=== PATIENT | female | born 1980 | race Caucasian/White ===

== ENCOUNTER → 2016-11-20 | Outpatient (REF) | payer OTHER | LOC: M LAB REF 14:24 | PROVIDERS: ATTEND Physician Assistant Medical | DX: J10.1 Influenza due to other identified influenza virus with other respiratory manifestations (principal) ==

== ENCOUNTER → 2016-12-21 | Outpatient (CLI) | payer OTHER ==
--- NOTE | 2016-12-21 16:30 | REP ---
MAXILLOFACIAL CT WITHOUT CONTRAST: HISTORY: Facial pain. COMPARISON: 09/03/2014 Bilateral Manuela cells are present. The sinuses are clear. The osteomeatal units are patent. The middle and inferior nasal turbinates are partially paradoxical. There is minimal deviation of the nasal septum to the left. The cribriform plate, medial pearl of the orbits and optic canals are intact. The carotid canals form a segment of the posterolateral pearl of the sphenoid sinus. The left sphenoid sinus septum inserts into the left internal carotid canal wall. IMPRESSION: There is no acute or chronic sinusitis. Signed by Lawson Saavedra MD 12/21/2016 04:33 P
== END ==
LOC: M RAD 15:28
PROVIDERS: ATTEND Specialist
DX: G50.1 Atypical facial pain (principal); S02.92XS Unspecified fracture of facial bones, sequela

== ENCOUNTER → 2017-04-14 | Outpatient (CLI) | payer OTHER ==
--- NOTE | 2017-04-14 14:00 | REP ---
BILATERAL DIAGNOSTIC MAMMOGRAM WITH BILATERAL BREAST ULTRASOUND: Family history of breast cancer in maternal cousin. Bilateral mammogram performed in the MLO and CC projections with bilateral spot compression views. Reportedly there is a palpable abnormality in the lower outer left breast and that area is marked on the skin with a triangular marker. There are no comparison studies. There is moderate fibroglandular tissue bilaterally. There is a suggestion of an ill-defined nodular opacity in the upper outer quadrant of the right breast. Margins are not well visualized due to the moderately dense breast parenchyma. It is vaguely visualized on the right CC spot compression view. No nodule is seen in the left breast, particularly at the site of the reported palpable abnormality. No clustered microcalcifications are seen bilaterally. Real-time sonographic evaluation of the right breast is performed laterally. There is an oval hypoechoic nodule, which appears to demonstrate some internal blood flow with Doppler color evaluation. This measures 1.3 x 0.9 x 1.0 cm. Biopsy is recommended. At the site of the reported palpable abnormality at 4 -o'clock position in the left breast, there is a hypoechoic nodule 7 x 3 x 5 mm. This also appears to demonstrate some internal blood flow with Doppler color evaluation. Ultrasound-guided biopsy is recommended. IMPRESSION: ACR 4 suspicious. Hypoechoic nodule seen best by ultrasound in the region of 9 -o'clock position right breast. Recommend ultrasound guided biopsy. At the site of the reported palpable abnormality in the left breast, there is another hypoechoic nodule for which ultrasound guided biopsy is recommended. BI-RADS/ACR category 4 mammogram. Suspicious abnormality - biopsy should be considered. Usually requires biopsy. This mammogram was interpreted with the aid of an FDA-approved computer-aided detection system. The patient states she/he had a clinical breast exam in March 2017. Patient letter [id number]. Signed by Lionel Sommer MD 04/14/2017 04:57 P
== END ==
LOC: M RAD 11:03
PROVIDERS: ATTEND Advanced Practice Midwife
DX: N63 Unspecified lump in breast (principal)
CPT/HCPCS: 76642; G0204

== ENCOUNTER → 2017-05-11 | Outpatient (REF) | payer OTHER | LOC: M LAB REF 13:51 | PROVIDERS: ATTEND Advanced Practice Midwife | DX: Z12.4 Encounter for screening for malignant neoplasm of cervix (principal) ==

== ENCOUNTER → 2017-09-17 | Outpatient (REF) | payer OTHER | LOC: M LAB REF 15:54 | DX: J02.9 Acute pharyngitis, unspecified (principal) ==

== ENCOUNTER → 2017-12-31 | Outpatient (CLI) | payer OTHER ==
[2017-12-31 09:42] LABS: HEMATOCRIT 42.7 % (36.0-47.0); HEMOGLOBIN 14.7 g/dl (12.0-15.5); MEAN CORPUSCULAR HEMOGLOBIN 31.5 pg (27.0-33.0); MEAN CORPUSCULAR HGB CONC 34.4 g/dl (32.0-36.5); MEAN CORPUSCULAR VOLUME 91.6 fl (80.0-96.0); PLATELET COUNT, AUTOMATED 360 10^3/uL (150-450); RED BLOOD COUNT 4.66 10^6/uL (4.00-5.40); RED CELL DISTRIBUTION WIDTH 11.8 % (11.5-14.5); WHITE BLOOD COUNT 6.5 10^3/uL (4.0-10.0)
[2017-12-31 10:07] LABS: ALBUMIN/GLOBULIN RATIO 1.25 (1.00-1.93); ALKALINE PHOSPHATASE 59 U/L (45-117); ALT/SGPT 17 U/L (12-78); ANION GAP 5 MEQ/L (8-16); AST/SGOT 14 U/L (7-37); BILIRUBIN,TOTAL 0.3 MG/DL (0.2-1.0); BLOOD UREA NITROGEN 6 MG/DL (7-18); CARBON DIOXIDE LEVEL 27 MEQ/L (21-32); CHLORIDE LEVEL 108 MEQ/L (98-107); CREATININE FOR GFR 0.73 MG/DL (0.55-1.30); GLOMERULAR FILTRATION RATE > 60.0 (>60); GLUCOSE, FASTING 90 MG/DL (70-100); IRON (FE) 83 UG/DL (50-170); PERCENT SATURATION 28.5 % (13.2-45.0); POTASSIUM SERUM 4.5 MEQ/L (3.5-5.1); SODIUM LEVEL 140 MEQ/L (136-145); THYROID STIMULATING HORMONE < 0.005 uIU/ML (0.358-3.740); THYROXINE (T4) 16.3 UG/DL (4.5-12.0); TOTAL IRON BINDING CAPACITY 291 UG/DL (250-450); TOTAL PROTEIN 7.2 GM/DL (6.4-8.2)
[2017-12-31 10:47] LABS: ESTIMATED AVERAGE GLUCOSE 88 MG/DL (60-110); HEMOGLOBIN A1c 4.7 %
== END ==
LOC: M LAB 09:02
DX: I10 Essential (primary) hypertension (principal)
CPT/HCPCS: 83550

== ENCOUNTER → 2018-11-20 | Outpatient (CLI) | payer OTHER ==
[2018-11-20 15:48] LABS: HEMATOCRIT 42.7 % (36.0-47.0); HEMOGLOBIN 14.3 g/dl (12.0-15.5); MEAN CORPUSCULAR HEMOGLOBIN 31.7 pg (27.0-33.0); MEAN CORPUSCULAR HGB CONC 33.5 g/dl (32.0-36.5); MEAN CORPUSCULAR VOLUME 94.7 fl (80.0-96.0); PLATELET COUNT, AUTOMATED 323 10^3/uL (150-450); RED BLOOD COUNT 4.51 10^6/uL (4.00-5.40); WHITE BLOOD COUNT 9.4 10^3/uL (4.0-10.0)
[2018-11-20 16:13] LABS: HEMOGLOBIN A1c 4.8 %
[2018-11-20 16:23] LABS: ALBUMIN 4.1 GM/DL (3.2-5.2); ALT/SGPT 27 U/L (12-78); BILIRUBIN,TOTAL 0.4 MG/DL (0.2-1.0); BLOOD UREA NITROGEN 8 MG/DL (7-18); CALCIUM LEVEL 8.6 MG/DL (8.5-10.1); CARBON DIOXIDE LEVEL 27 MEQ/L (21-32); CHLORIDE LEVEL 106 MEQ/L (98-107); CHOLESTEROL LEVEL 208 MG/DL (<200); CHOLESTEROL RISK RATIO 3.014 (<5); CREATININE FOR GFR 0.73 MG/DL (0.55-1.30); GLOMERULAR FILTRATION RATE > 60.0 (>60); GLUCOSE, FASTING 76 MG/DL (70-100); HDL CHOLESTEROL 69 MG/DL (>40); LDL CHOLESTEROL 111 MG/DL (<100); NON-HDL-C 139 MG/DL; SODIUM LEVEL 141 MEQ/L (136-145); THYROXINE (T4) 12.6 UG/DL (4.5-12.0); TOTAL PROTEIN 7.2 GM/DL (6.4-8.2); TRIGLYCERIDES LEVEL 139 MG/DL (<150)
[2018-11-21 09:21] LABS: TOTAL 25(OH) VITAMIN D 23.2 NG/ML (30.0-100.0)
[2018-11-21 09:22] LABS: TOTAL T3 132.3 NG/DL (60.0-181.0)
== END ==
LOC: M LAB 15:07
PROVIDERS: ATTEND Family Medicine
DX: R53.83 Other fatigue (principal); E03.9 Hypothyroidism, unspecified

== ENCOUNTER → 2020-02-13 | Outpatient (REF) | payer OTHER ==
[2020-02-13 18:37] LABS: HEMATOCRIT 45.9 % (36.0-47.0); HEMOGLOBIN 15.4 g/dl (12.0-15.5); MEAN CORPUSCULAR HEMOGLOBIN 31.6 pg (27.0-33.0); MEAN CORPUSCULAR HGB CONC 33.6 g/dl (32.0-36.5); MEAN CORPUSCULAR VOLUME 94.3 fl (80.0-96.0); PLATELET COUNT, AUTOMATED 380 10^3/uL (150-450); RED BLOOD COUNT 4.87 10^6/uL (4.00-5.40); WHITE BLOOD COUNT 11.1 10^3/uL (4.0-10.0)
== END ==
LOC: M PLALAB 15:45
PROVIDERS: ATTEND Advanced Practice Midwife
DX: N92.4 Excessive bleeding in the premenopausal period (principal)

== ENCOUNTER → 2020-02-22 | Outpatient (CLI) | payer OTHER ==
--- NOTE | 2020-02-22 11:52 | REP ---
Clinical: Menorrhagia. Technique: Transabdominal pelvic ultrasound followed by transvaginal examination for better evaluation of the endometrium and adnexa. Findings: Bladder is normal and measures 6.7 x 6.5 x 6.2 cm. Heterogeneous retroverted uterus measures 6.9 x 3.2 x 4.3 cm. Endometrial complex measures 9.4 mm thickness. Echogenic lesion within the endometrium towards the fundus measures 7 x 8 x 5 mm and may represent hemorrhagic debris or polyp. Right ovary is normal in appearance and vascularity measuring 2.2 x 2.0 x 1.4 cm. Left ovary is normal in vascularity and measures 3.0 x 1.6 x 2.4 cm including multiple follicles and 1.5 cm dominant follicle/physiologic cyst. No pelvic fluid or adnexal mass lesion. Impression: 1. Heterogeneous retroverted uterus with possible 8 mm endometrial polyp. 2. 1.5 cm dominant follicle/physiologic cyst in the left ovary.
--- NOTE | 2020-02-22 14:18 | REP ---
DIGITAL DIAGNOSTIC BILATERAL MAMMOGRAPHY WITH CAD: 3D TOMOGRAPHY: AND FOCUSED LEFT BREAST SONOGRAPHY. HISTORY: Palpable lump left breast getting larger. Bilateral breast pain diffuse. The patient relates a history of bilateral benign breast biopsies in 2017. Comparison mammography April 14, 2017 with bilateral breast sonography at that time. MAMMOGRAPHIC FINDINGS: Breast parenchyma is heterogeneously dense in a pattern which may inhibit the sensitivity of mammography. The Volpara volumetric breast density category is: C. There has been some involutional change. Stromal pattern is otherwise unchanged on the right. No neodensity, spiculation, or architectural distortion is seen. On the left, a skin marker is affixed to the skin at the site of the palpable lump and this projects in the left lateral mid breast slightly inferior to the plane of the nipple on the true mediolateral view. Magnified focal spot compression and routine views of the left breast show no mammographic neodensity, architectural distortion, or microcalcification. SONOGRAPHIC FINDINGS: At the site of the palpable lump at 4-o'clock position 3 cm from the nipple there is a 5 x 6 x 3 mm hypoechoic area which is felt to be unchanged from the comparison sonography April 14, 2017. Also noted at 4-o'clock position, 5 cm from the nipple is a 4 mm area slightly hypoechoic. There is no evidence of acoustic shadowing. This is not felt to have suspicious features. IMPRESSION: BIRADS 2: BI-RADS/ACR category 2 mammogram. Benign Findings. BIRADS category II benign findings. Clinical followup is advised. Repeat screening mammography recommended 1 year. This mammogram was interpreted with the aid of an FDA-approved computer-aided detection system. The patient states she had a clinical breast exam in January 2020. The patient letter being requested is [id number] dense This patient's estimated Tyrer-zick lifetime risk assessment for breast cancer is 14.1 %.
== END ==
LOC: M WHC 10:39
PROVIDERS: ATTEND Advanced Practice Midwife
DX: N64.4 Mastodynia (principal); N92.4 Excessive bleeding in the premenopausal period; N83.201 Unspecified ovarian cyst, right side; N85.4 Malposition of uterus; N63.20 Unspecified lump in the left breast, unspecified quadrant
CPT/HCPCS: 76642; 76830; 76856; 77066; G0279

== ENCOUNTER → 2020-03-21 | Outpatient (CLI) | payer OTHER ==
--- NOTE | 2020-05-10 15:52 | REP ---
This report was delayed due to a malware attack at this facility. FOCUSED RIGHT BREAST ULTRASOUND HISTORY: 7 cm from the nipple at 9 o'clock in the right breast, right breast mass. Additional imaging requested. COMPARISON: Mammography 02/22/2020. SONOGRAPHIC FINDINGS: There is a hypoechoic nodule in the 9 o'clock position of the right breast approximately 7 cm from the nipple measuring 8 x 5 x 8 mm. This is nonspecific. It is not a simple cyst. There is a simple cyst nearby in the 9 o'clock of the right breast measuring 8 x 8 x 3 mm as well. IMPRESSION: Nonspecific 8 mm hypoechoic solid nodule 9 o'clock position, right breast. BI- RADS category 4, suspicious findings. Ultrasound-guided needle biopsy with marker clip placement recommended. MTDD
== END ==
LOC: M WHC 09:03
PROVIDERS: ATTEND Surgery
DX: N63.15 Unspecified lump in the right breast, overlapping quadrants (principal); N60.01 Solitary cyst of right breast

== ENCOUNTER 2020-09-27 19:28 | Inpatient (IN) | payer OTHER ==
[2020-09-27 19:58] LABS: BASO # 0.1 10^3/uL (0.0-0.2); BASO % 0.6 % (0.0-1.0); EOS % 0.1 % (0.0-3.0); HEMATOCRIT 42.6 % (36.0-47.0); HEMOGLOBIN 13.9 g/dl (12.0-15.5); LYMPH # 1.4 10^3/uL (1.5-5.0); LYMPH % 13.9 % (24.0-44.0); MEAN CORPUSCULAR HEMOGLOBIN 31.4 pg (27.0-33.0); MEAN CORPUSCULAR HGB CONC 32.6 g/dl (32.0-36.5); MEAN CORPUSCULAR VOLUME 96.2 fl (80.0-96.0); MONO # 0.4 10^3/uL (0.0-0.8); MONO % 4.2 % (0.0-5.0); NEUTROPHILS # 8.3 10^3/uL (1.5-8.5); NEUTROPHILS % 80.8 % (36.0-66.0); PLATELET COUNT, AUTOMATED 359 10^3/uL (150-450); RED BLOOD COUNT 4.43 10^6/uL (4.00-5.40); WHITE BLOOD COUNT 10.2 10^3/uL (4.0-10.0)
[2020-09-27] MEDS ORDERED: NS 1,000 ML IV ONE (20:15)
--- NOTE | 2020-09-27 20:35 | ECGEPIP ---
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
--- NOTE | 2020-09-27 20:39 | REPVR ---
PROCEDURE INFORMATION: Exam: CT Head Without Contrast Exam date and time: 09/27/2020 8:05 PM Age: 39 years old Clinical indication: Altered mental status/memory loss; Confusion or disorientation; Additional info: AMS TECHNIQUE: Imaging protocol: Computed tomography of the head without contrast. Radiation optimization: All CT scans at this facility use at least one of these dose optimization techniques: automated exposure control; mA and/or kV adjustment per patient size (includes targeted exams where dose is matched to clinical indication); or iterative reconstruction. COMPARISON: CT Head without contrast 07/05/2016 2:29 PM FINDINGS: Brain: Normal. No hemorrhage. Unremarkable white matter. No mass effect. Cerebral ventricles: No ventriculomegaly. Bones/joints: Unremarkable. No acute fracture. Paranasal sinuses: Visualized sinuses are unremarkable. No fluid levels. Mastoid air cells: Visualized mastoid air cells are well aerated. Soft tissues: Unremarkable. IMPRESSION: No acute intracranial abnormality. Electronically signed by: Uvaldo Montgomery On 09/27/2020 20:39:51 PM
[2020-09-27 20:44] LABS: ALBUMIN 3.6 GM/DL (3.2-5.2); ALT/SGPT 28 U/L (12-78); BILIRUBIN,DIRECT < 0.1 MG/DL (0.0-0.2); BILIRUBIN,TOTAL 0.2 MG/DL (0.2-1.0); BLOOD UREA NITROGEN 12 MG/DL (7-18); CALCIUM LEVEL 8.9 MG/DL (8.5-10.1); CARBON DIOXIDE LEVEL 29 MEQ/L (21-32); CHLORIDE LEVEL 103 MEQ/L (98-107); CREATININE FOR GFR 0.86 MG/DL (0.55-1.30); GLOMERULAR FILTRATION RATE > 60.0 (>60); GLUCOSE, FASTING 114 MG/DL (70-100); POTASSIUM SERUM 4.9 MEQ/L (3.5-5.1); SODIUM LEVEL 138 MEQ/L (136-145); TOTAL PROTEIN 6.5 GM/DL (6.4-8.2)
[2020-09-27 20:56] LABS: APPEARANCE, URINE CLEAR (CLEAR); BACTERIA, URINE AUTO NEGATIVE (NEGATIVE); BILIRUBIN, URINE AUTO NEGATIVE (NEGATIVE); BLOOD, URINE BLOOD NEGATIVE (NEGATIVE); COLOR, URINE YELLOW (YELLOW); GLUCOSE, URINE (UA) AUTO 1+ mg/dL (NEGATIVE); KETONE, URINE AUTO NEGATIVE (NEGATIVE); LEUKOCYTE ESTERASE, URINE AUTO NEGATIVE (NEGATIVE); MUCUS, URINE SMALL (NEGATIVE); NITRITE, URINE AUTO NEGATIVE (NEGATIVE); PROTEIN, URINE AUTO NEGATIVE (NEGATIVE); RBC, URINE AUTO 4 /HPF (0-3); SPECIFIC GRAVITY URINE AUTO 1.021 (1.002-1.035); SQUAMOUS EPITHELIAL CELL UR AU 1 /HPF (0-6); UROBILINOGEN, URINE AUTO 0.2 mg/dL (0.0-2.0); WBC, URINE AUTO 1 /HPF (0-3)
[2020-09-27 21:41] LABS: AMPHETAMINES LEVEL URINE POSITIVE (NEGATIVE); BARBITURATES URINE NEGATIVE (NEGATIVE); BENZODIAZEPINES URINE NEGATIVE (NEGATIVE); CANNABINOIDS URINE POSITIVE (NEGATIVE); COCAINE METABOLITE URINE NEGATIVE (NEGATIVE); METHADONE URINE NEGATIVE (NEGATIVE); OPIATES URINE NEGATIVE (NEGATIVE); PHENCYCLIDINE URINE NEGATIVE (NEGATIVE)
[2020-09-28 00:13] LABS: RSV AMPLIFICATION NEGATIVE (NEGATIVE)
[2020-09-28] MEDS ORDERED: ALPR1TAB3 PO (00:18)
[2020-09-28] MEDS ORDERED: med rec comment (00:23)
[2020-09-28] MEDS ORDERED: ACETAMINOPHEN TAB 650MG DOSE (2X325MG) PO PRN (02:30)
[2020-09-28] MEDS ORDERED: FOLIC ACID 1 MG in NS 50 ML IV SCH ×2 (02:30→12:00)
--- NOTE | 2020-09-28 02:46 | REPVR ---
PROCEDURE INFORMATION: Exam: XR Chest, 1 View Exam date and time: 09/28/2020 2:36 AM Age: 39 years old Clinical indication: Other: AMS TECHNIQUE: Imaging protocol: XR of the chest Views: 1 view. COMPARISON: CR Chest, 2 view PA, Lat 07/15/2016 4:10 PM FINDINGS: Lungs: No consolidation. Pleural spaces: No definite pneumothorax. Heart/Mediastinum: Unremarkable. No cardiomegaly. Bones/joints: Unremarkable. Other findings: Apices are partially obscured by chin position. IMPRESSION: No definite acute abnormality. Electronically signed by: Uvaldo Montgomery On 09/28/2020 02:46:41 AM
[2020-09-28 03:28] LABS: ETHYL ALCOHOL (ETHANOL) < 0.003 % (0.000-0.010)
--- NOTE | 2020-09-28 05:00 | HPEPDOC ---
[facility] Medical History & Physical Date of Admission Sep 28, 2020 Date of Service: Sep 28, 2020 Attending Physician: Darío Nino MD History and Physical CHIEF COMPLAINT: Altered mental status HISTORY OF PRESENT ILLNESS: Patient is a 39-year-old female with a past medical history significant for anxiety presented to the [facility] emergency department by EMS for altered mental status. The patient's history is somewhat unclear as she is currently altered. Per EMS report, the patient was found sitting in her car in the middle of the street altered and appeared lethargic. Per report, she was able to answer yes or no questions and responded to stimuli. When she was confronted with the music artist, she reportedly became agitated and started crying.. She was transported to the [facility] for evaluation. On presentation to the emergency department the patient was vitally stable, although tachycardic. She continued to be altered, although was arousable and did answer yes or no questions. Head CT was obtained which did not demonstrate any acute intracranial abnormality. Laboratory studies were unremarkable. Toxicology did result positive for amphetamines and cannabinoids. There was questionable report of a possible seizure disorder in the patient. I contacted the patient's mother, who is listed as her point of contact for any further information. Patient's mother states that the patient does not have a seizure disorder. She states that she had what was believed to be a seizure back in 2017, but was evaluated and found that it was due to an acute stress reaction. She is currently not on any antiseizure medication and has never been formally diagnosed with seizures. Additionally, the patient's mother states that to her knowledge her daughter does not use any IV or illicit drugs. She also states that her daughter is not an alcoholic and has never had an issue of substance abuse. PAST MEDICAL HISTORY: 1. Anxiety. 2. History of somatic disorder from acute stress reaction back in 2017. PAST SURGICAL HISTORY: None SOCIAL HISTORY: Per patient's mother patient is a nonsmoker, does not use any IV or illicit drugs to her knowledge. FAMILY HISTORY: Patient's mother denies any family history for seizure disorders. ALLERGIES: Please see below. REVIEW OF SYSTEMS: Unable to obtain as patient is altered HOME MEDICATIONS: Please see below. PHYSICAL EXAMINATION: VITAL SIGNS: Temperature 99.4, pulse 88, respiratory rate 16, blood pressure 102/51, pulse oximetry 98 % on room air. GENERAL APPEARANCE:. Patient is altered. She appears lethargic, lying in bed. She is arousable. She answers yes and no questions but overall is non- participatory and non-cooperative with examination. HEENT: Atraumatic, normocephalic. Eyes are nonicteric. Trachea is midline. Area of redness under her left nostril CARDIOVASCULAR:. Normal S1, S2, regular rate and rhythm. No clicks rubs or murmurs. LUNGS:. Clear breath sounds bilaterally. Good respiratory effort. No wheezes rhonchi or rales. Symmetric chest excursion ABDOMEN:. Soft nondistended, normoactive bowel sounds. No masses or organomegaly EXTREMITIES: No edema. Full and equal pulses bilateral upper and lower extremities. NEUROLOGICAL: No Focal neurological deficits. Patient is altered and a full neurological examination cannot be completed LABORATORY DATA: See below. IMAGING: PROCEDURE INFORMATION: Exam: CT Head Without Contrast Exam date and time: 09/27/2020 8:05 PM Age: 39 years old Clinical indication: Altered mental status/memory loss; Confusion or disorientation; Additional info: AMS TECHNIQUE: Imaging protocol: Computed tomography of the head without contrast. Radiation optimization: All CT scans at this facility use at least one of these dose optimization techniques: automated exposure control; mA and/or kV adjustment per patient size (includes targeted exams where dose is matched to clinical indication); or iterative reconstruction. COMPARISON: CT Head without contrast 07/05/2016 2:29 PM FINDINGS: Brain: Normal. No hemorrhage. Unremarkable white matter. No mass effect. Cerebral ventricles: No ventriculomegaly. Bones/joints: Unremarkable. No acute fracture. Paranasal sinuses: Visualized sinuses are unremarkable. No fluid levels. Mastoid air cells: Visualized mastoid air cells are well aerated. Soft tissues: Unremarkable. IMPRESSION: No acute intracranial abnormality. Electronically signed by: Uvaldo Montgomery On 09/27/2020 20:39:51 PM PROCEDURE INFORMATION: Exam: XR Chest, 1 View Exam date and time: 09/28/2020 2:36 AM Age: 39 years old Clinical indication: Other: AMS TECHNIQUE: Imaging protocol: XR of the chest Views: 1 view. COMPARISON: CR Chest, 2 view PA, Lat 07/15/2016 4:10 PM FINDINGS: Lungs: No consolidation. Pleural spaces: No definite pneumothorax. Heart/Mediastinum: Unremarkable. No cardiomegaly. Bones/joints: Unremarkable. Other findings: Apices are partially obscured by chin position. IMPRESSION: No definite acute abnormality. Electronically signed by: Uvaldo Montgomery On 09/28/2020 02:46:41 AM MICROBIOLOGY: Please see below. ASSESSMENT: Patient is a 39-year-old female with past medical history of anxiety who presented to the [facility] emergency department with altered mental status. PLAN: 1. Altered mental status likely secondary to metabolic encephalopathy -Patient presented with altered mental status per HPI above. Currently protecting her airway.. She appears to have improved from presentation to my evaluation. Etiology of altered mental status likely metabolic encephalopathy. Her urine toxicology is positive for amphetamines and for cannabinoids. She does take alprazolam outpatient. Interestingly, her toxicology was negative for benzodiazepines. Her ethyl alcohol level is negative. It is possible she has taken a drug that does not show positive on our toxicology. -Labs are otherwise unremarkable. I have ordered prolactin, although seizure does not appear likely. She does not appear postictal. -UA and chest x-ray are negative. There is no elevation white blood cell count and she's afebrile. Infectious unlikely. -At this time will continue IV fluid hydration. Will place the patient on thiamine, multivitamin and folic acid for now. Anticipate she will improve with IV fluid hydration and time. -Telemetry monitoring 2. Anxiety -Currently holding her alprazolam due to her altered mental status. 3. DVT prophylaxis -Lovenox Vital Signs Vital Signs Date Time Temp Pulse Resp B/P (MAP) Pulse Ox O2 Delivery O2 Flow Rate FiO2 09/28/20 01:44 81 99 09/28/20 01:30 102/54 (70) 09/27/20 19:55 99.4 16 Laboratory Data Labs 24H Laboratory Tests 2 09/27/20 19:37: Bedside Glucose (Misc Panel) 101 09/27/20 19:49: POC Beta HCG, Quantitative < 5.0 09/27/20 19:51: Immature Granulocyte % (Auto) 0.4, Neutrophils (%) (Auto) 80.8H, Lymphocytes (%) (Auto) 13.9L, Monocytes (%) (Auto) 4.2, Eosinophils (%) (Auto) 0.1, Basophils (%) (Auto) 0.6, Neutrophils # (Auto) 8.3, Lymphocytes # (Auto) 1.4L, Monocytes # (Auto) 0.4, Eosinophils # (Auto) 0.0, Basophils # (Auto) 0.1, Nucleated Red Blood Cells % (auto) 0.0 09/27/20 19:52: Anion Gap 6L, Glomerular Filtration Rate > 60.0, Calcium Level 8.9, Total Bilirubin 0.2, Direct Bilirubin < 0.1, Aspartate Amino Transf (AST/SGOT) 23, Alanine Aminotransferase (ALT/SGPT) 28, Alkaline Phosphatase 73, Total Protein 6.5, Albumin 3.6, Albumin/Globulin Ratio 1.2, Thyroid Stimulating Hormone (TSH) 2.100, Ethyl Alcohol Level < 0.003 09/27/20 20:44: Urine Color YELLOW, Urine Appearance CLEAR, Urine pH 5.0, Urine Specific [place] 1.021, Urine Protein NEGATIVE, Urine Glucose (Auto)(UA) 1+H, Urine Ketones (Auto) NEGATIVE, Urine Blood NEGATIVE, Urine Nitrite NEGATIVE, Urine Bilirubin NEGATIVE, Urine Urobilinogen 0.2, Urine Leukocyte Esterase (Auto) NEGATIVE, Urine WBC (Auto) 1, Urine RBC (Auto) 4H, Urine Hyaline Casts (Auto) 0, Urine Bacteria (Auto) NEGATIVE, Urine Squamous Epithelial Cells 1, Urine Mucus (Auto) SMALL, Urine Sperm (Auto) , Urine Opiates Screen NEGATIVE, Urine Methadone Screen NEGATIVE, Urine Barbiturates Screen NEGATIVE, Urine Phencyclidine Screen NEGATIVE, Urine Amphetamines Screen POSITIVEH, Urine Benzodiazepines Screen NEGATIVE, Urine Cocaine Metabolite Screen NEGATIVE, Urine Cannabinoids Screen POSITIVEH 09/27/20 23:12: Coronavirus (COVID-19)(PCR) NEGATIVE, Influenza Type A (RT-PCR) NEGATIVE, Influenza Type B (RT-PCR) NEGATIVE, Respiratory Syncytial Virus (PCR) NEGATIVE CBC/BMP Laboratory Tests 09/27/20 19:51 09/27/20 19:52 Home Medications Scheduled Alprazolam (Alprazolam) 1 Mg Tablet, 1 MG PO TID Miscellaneous Medications [med rec comment] used external med history Allergies Coded Allergies: No Known Allergies (Verified , 08/20/04) A-FIB/CHADSVASC A-FIB History Current/History of A-Fib/PAF?: No Attending Note Attending Note Family Medicine Attending Note: I was present on site to supervise Brayden Schmitz D.O (PGY-3). We discussed the history and exam. I confirmed the cruz elements during my [id number] encounter with the patient. We conferred on the assessment and plan; I agree with the note as documented. Ms. Mijares continue to have altered mental status at the time of my examination. I agree with Dr. Schmitz's note that she seems to be slowly improving with time. I think allowing her to metabolize whatever she is likely taken in is the best course of action. 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
[2020-09-28] MEDS: NS 1,000 ML IV SCH ×2 (05:35→14:47)
[2020-09-28 07:31] LABS: HEMATOCRIT 39.8 % (36.0-47.0); HEMOGLOBIN 13.2 g/dl (12.0-15.5); MEAN CORPUSCULAR HGB CONC 33.2 g/dl (32.0-36.5); MEAN CORPUSCULAR VOLUME 96.4 fl (80.0-96.0); PLATELET COUNT, AUTOMATED 321 10^3/uL (150-450); RED BLOOD COUNT 4.13 10^6/uL (4.00-5.40); WHITE BLOOD COUNT 14.6 10^3/uL (4.0-10.0)
[2020-09-28 08:30] VITALS: BP 91/53
[2020-09-28 08:35] LABS: ALBUMIN 2.9 GM/DL (3.2-5.2); ALT/SGPT 45 U/L (12-78); BILIRUBIN,TOTAL 0.2 MG/DL (0.2-1.0); BLOOD UREA NITROGEN 9 MG/DL (7-18); CARBON DIOXIDE LEVEL 26 MEQ/L (21-32); CHLORIDE LEVEL 108 MEQ/L (98-107); CREATININE FOR GFR 0.68 MG/DL (0.55-1.30); GLOMERULAR FILTRATION RATE > 60.0 (>60); GLUCOSE, FASTING 87 MG/DL (70-100); POTASSIUM SERUM 4.1 MEQ/L (3.5-5.1); SODIUM LEVEL 142 MEQ/L (136-145); TOTAL PROTEIN 5.4 GM/DL (6.4-8.2)
[2020-09-28] MEDS ORDERED: ENOXAPARIN 40MG/0.4ML SYRINGE (J1650 PER 10MG) SC SCH (09:00)
[2020-09-28] MEDS ORDERED: MULTIVITAMINS/MINERALS THERAP 1 TAB PO SCH (09:00)
[2020-09-28] MEDS ORDERED: THIAMINE 200MG/2ML VIAL (J3411 PER 100MG) IV SCH (09:00)
[2020-09-28] MEDS ORDERED: SLF 3 ML SYR IV PRN (09:45)
[2020-09-28 12:00] VITALS: BP 88/54
[2020-09-28 13:31] VITALS: BP 86/54
[2020-09-28] MEDS ORDERED: SLF 3 ML SYR IV SCH (14:00)
[2020-09-28 14:54] VITALS: BP 90/50
[2020-09-28 15:54] VITALS: BP 94/60
--- NOTE | 2020-09-28 19:02 | DS.PDOC ---
Discharge Summary General Date of Admission Sep 28, 2020 at 02:13 Date of Discharge 09/28/20 Discharge Summary PROCEDURES PERFORMED DURING STAY: [None]. DISCHARGE DIAGNOSES: #metabolic encephalopathy #medical non-compliance #substance abuse COMPLICATIONS/CHIEF COMPLAINT: Acute Metabolic Encephalopathy. HOSPITAL COURSE: Patient was admitted for acute metabolic encephalopathy, possibly secondary to illicit drug use. She was responsive to questioning when prompted, but preferred not to answer. She later in the afternoon stated she did not want to stay in the hospital. Risks and benefits of staying in the hospital were discussed at length, and she voiced full understanding. She denied any thoughts of self harm, or harm to others. Her mother was contacted twice, and also tried to convince her daughter to remain in the hospital. She left against medical advice. DISCHARGE MEDICATIONS: Please see below. ALLERGIES: Please see below. DISPOSITION: 07 Against Medical Advice. TIME SPENT ON DISCHARGE: 35 minutes. Vital Signs/I&Os Vital Signs Date Time Temp Pulse Resp B/P (MAP) Pulse Ox O2 Delivery O2 Flow Rate FiO2 09/28/20 15:54 97.1 70 18 94/60 (71) 100 Room Air Laboratory Data Labs 24H Laboratory Tests 2 09/27/20 19:37: Bedside Glucose (Misc Panel) 101 09/27/20 19:49: POC Beta HCG, Quantitative < 5.0 09/27/20 19:51: Immature Granulocyte % (Auto) 0.4, Neutrophils (%) (Auto) 80.8H, Lymphocytes (%) (Auto) 13.9L, Monocytes (%) (Auto) 4.2, Eosinophils (%) (Auto) 0.1, Basophils (%) (Auto) 0.6, Neutrophils # (Auto) 8.3, Lymphocytes # (Auto) 1.4L, Monocytes # (Auto) 0.4, Eosinophils # (Auto) 0.0, Basophils # (Auto) 0.1, Nucleated Red Blood Cells % (auto) 0.0 09/27/20 19:52: Anion Gap 6L, Glomerular Filtration Rate > 60.0, Calcium Level 8.9, Total Bilirubin 0.2, Direct Bilirubin < 0.1, Aspartate Amino Transf (AST/SGOT) 23, Ala nine Aminotransferase (ALT/SGPT) 28, Alkaline Phosphatase 73, Total Protein 6.5, Albumin 3.6, Albumin/Globulin Ratio 1.2, Thyroid Stimulating Hormone (TSH) 2.100, Ethyl Alcohol Level < 0.003 09/27/20 20:44: Urine Color YELLOW, Urine Appearance CLEAR, Urine pH 5.0, Urine Specific [place] 1.021, Urine Protein NEGATIVE, Urine Glucose (Auto)(UA) 1+H, Urine Ketones (Auto) NEGATIVE, Urine Blood NEGATIVE, Urine Nitrite NEGATIVE, Urine Bilirubin NEGATIVE, Urine Urobilinogen 0.2, Urine Leukocyte Esterase (Auto) NEGATIVE, Urine WBC (Auto) 1, Urine RBC (Auto) 4H, Urine Hyaline Casts (Auto) 0, Urine Bacteria (Auto) NEGATIVE, Urine Squamous Epithelial Cells 1, Urine Mucus (Auto) SMALL, Urine Sperm (Auto) , Urine Opiates Screen NEGATIVE, Urine Methadone Screen NEGATIVE, Urine Barbiturates Screen NEGATIVE, Urine Phencyclidine Screen NEGATIVE, Urine Amphetamines Screen POSITIVEH, Urine Benzodiazepines Screen NEGATIVE, Urine Cocaine Metabolite Screen NEGATIVE, Urine Cannabinoids Screen POSITIVEH 09/27/20 23:12: Coronavirus (COVID-19)(PCR) NEGATIVE, Influenza Type A (RT-PCR) NEGATIVE, Influenza Type B (RT-PCR) NEGATIVE, Respiratory Syncytial Virus (PCR) NEGATIVE 09/28/20 07:10: Nucleated Red Blood Cells % (auto) 0.0, Anion Gap 8, Glomerular Filtration Rate > 60.0, Calcium Level 8.0L, Total Bilirubin 0.2, Aspartate Amino Transf (AST/SGOT) 35, Alanine Aminotransferase (ALT/SGPT) 45, Alkaline Phosphatase 48, Total Protein 5.4L, Albumin 2.9L, Albumin/Globulin Ratio 1.2 CBC/BMP Laboratory Tests 09/27/20 19:51 09/27/20 19:52 09/28/20 07:10 FSBS Laboratory Tests Test 09/27/20 19:37 Range/Units Bedside Glucose (Misc Panel) 101 70-105 MG/DL Microbiology Microbiology 09/28/20 Blood Culture, Received Pending 09/28/20 Blood Culture, Received Pending Discharge Medications Scheduled Alprazolam (Alprazolam) 1 Mg Tablet, 1 MG PO TID, (Reported) Miscellaneous Medications [med rec comment] , (Reported) used external med history Allergies Coded Allergies: No Known Allergies (Verified , 08/20/04) TAE WALKER MD Sep 28, 2020 19:02
[2020-09-30 10:45] LABS: PROLACTIN 21.4 NG/ML
== END 2020-09-28 18:23 | disposition left against medical advice (07) | DRG 52 ==
LOC: M ED 19:28 → M ED INP 09-28 02:13 → M PCU 09-28 08:25
PROVIDERS: ADMIT Family Medicine; ATTEND Internal Medicine
DX: G93.41 Metabolic encephalopathy (principal); Z91.19 Patient's noncompliance with other medical treatment and regimen; F41.9 Anxiety disorder, unspecified; Z79.899 Other long term (current) drug therapy; F12.90 Cannabis use, unspecified, uncomplicated